=== PATIENT | female | born 1975 | race Caucasian/White ===

== ENCOUNTER 2020-10-06 13:35 | Emergency (ER) | payer MEDICAID ==
[~2020-10-06] VITALS: Ht 160 cm; Wt 78.6 kg
[2020-10-06 14:18] LABS: CLARITY,URINE CLEAR (Clear); COLOR,URINE YELLOW (Yellow); GLUCOSE, URINE NEGATIVE (Neg); KETONES,URINE NEGATIVE (Neg); LEUKOCYTE ESTERASE ,URINE NEGATIVE (Neg); NITRITES, URINE NEGATIVE (Neg); OCCULT BLOOD,URINE NEGATIVE (Neg); PROTEIN,URINE NEGATIVE (Neg); UROBILINOGEN,URINE 0.2 E.U/dL (0.2-1.0)
[2020-10-06 14:19] LABS: UA COLLECTION TYPE CLN CATCH MIDSTREAM
[2020-10-06 14:23] LABS: BASOPHILS # (AUTO) 0.1 X10'3 (0-0.2); BASOPHILS % (AUTO) 0.7 % (0-1); EOSINOPHILS # (AUTO) 0.4 X10'3 (0-0.9); HEMATOCRIT 41.7 % (35.0-45.0); HEMOGLOBIN 14.3 g/dl (12.0-16.0); LYMPHOCYTES # (AUTO) 1.8 X10'3 (1.1-4.8); LYMPHOCYTES % (AUTO) 23.9 % (21-51); MEAN CORPUSCULAR HEMOGLOBIN 34.6 PG (27.0-31.0); MEAN CORPUSCULAR HGB CONC 34.3 g/dL (33.0-36.5); MEAN CORPUSCULAR VOLUME 100.9 FL (78-98); MONOCYTES # (AUTO) 0.6 X10'3 (0-0.9); MONOCYTES % (AUTO) 7.2 % (2-12); NEUTROPHILS # (AUTO) 4.9 X10'3 (1.8-7.7); NEUTROPHILS % (AUTO) 63.2 % (42-75); PLATELET COUNT 298 X10'3 (140-440); RED BLOOD COUNT 4.14 X10'6 (4.20-5.60); RED CELL DISTRIBUTION WIDTH 13.4 % (11.5-14.5); WHITE BLOOD COUNT 7.7 X10'3 (4.5-11.0)
[2020-10-06 14:30] LABS: ALANINE AMINOTRANSFERASE 18 U/L (12-78); ALBUMIN 3.7 G/DL (3.4-5.0); ALBUMIN/GLOBULIN RATIO 1.1 (1.1-1.5); ALKALINE PHOSPHATASE 90 IU/L (46-116); AMYLASE 51 U/L (25-115); ANION GAP 8 (8-16); ASPARTATE AMINO TRANSFERASE 17 U/L (10-37); BILIRUBIN,TOTAL 0.4 MG/DL (0.1-1.0); BLOOD UREA NITROGEN 11 MG/DL (7-18); BUN/CREATININE RATIO 18.3 (6.6-38.0); CALCIUM 8.8 MG/DL (8.5-10.1); CHLORIDE 102 MMOL/L (99-107); GLUCOSE 104 MG/DL (70-104); LIPASE 73 U/L (73-393); SODIUM 140 MMOL/L (135-145); TOTAL CARBON DIOXIDE 30.5 MMOL/L (24-32); TOTAL PROTEIN 7.2 G/DL (6.4-8.2); eGFR > 90 ML/MIN
[2020-10-06] MEDS ORDERED: ESCI20TA39 PO (16:03)
[2020-10-06 16:33] VITALS: BP 150/87
== END 2020-10-06 16:35 | disposition home or self-care (01) ==
LOC: ER 13:35
DX: F41.9 Anxiety disorder, unspecified (principal); R10.13 Epigastric pain; K74.60 Unspecified cirrhosis of liver
CPT/HCPCS: 36415; 80053; 81003; 82150; 83690; 85025; 99284

== ENCOUNTER 2021-03-06 13:33 | Emergency (ER) | payer MEDICAID ==
[~2021-03-06] VITALS: Ht 160 cm; Wt 86.0 kg
[~2021-03-06 13:33] MED LIST: ESCI20TA39 PO
[2021-03-06 14:20] LABS: BASOPHILS % (AUTO) 0.5 % (0-1); EOSINOPHILS # (AUTO) 0.2 X10'3 (0-0.9); EOSINOPHILS % (AUTO) 3.5 % (0-6); HEMATOCRIT 40.3 % (35.0-45.0); HEMOGLOBIN 13.9 g/dl (12.0-16.0); LYMPHOCYTES # (AUTO) 1.5 X10'3 (1.1-4.8); LYMPHOCYTES % (AUTO) 23.3 % (21-51); MEAN CORPUSCULAR HEMOGLOBIN 33.6 PG (27.0-31.0); MEAN CORPUSCULAR HGB CONC 34.6 g/dL (33.0-36.5); MEAN CORPUSCULAR VOLUME 97.1 FL (78-98); MEAN PLATELET VOLUME 8.2 FL (7.4-10.4); MONOCYTES # (AUTO) 0.5 X10'3 (0-0.9); MONOCYTES % (AUTO) 7.1 % (2-12); NEUTROPHILS # (AUTO) 4.3 X10'3 (1.8-7.7); NEUTROPHILS % (AUTO) 65.6 % (42-75); PLATELET COUNT 344 X10'3 (140-440); RED BLOOD COUNT 4.15 X10'6 (4.20-5.60); RED CELL DISTRIBUTION WIDTH 12.8 % (11.5-14.5); WHITE BLOOD COUNT 6.5 X10'3 (4.5-11.0)
[2021-03-06 14:40] LABS: ALANINE AMINOTRANSFERASE 25 U/L (12-78); ALBUMIN 3.6 G/DL (3.4-5.0); ALKALINE PHOSPHATASE 81 IU/L (46-116); ANION GAP 7 (8-16); ASPARTATE AMINO TRANSFERASE 20 U/L (10-37); BILIRUBIN,TOTAL 0.4 MG/DL (0.1-1.0); BLOOD UREA NITROGEN 12 MG/DL (7-18); BUN/CREATININE RATIO 20.7 (6.6-38.0); CALCIUM 8.8 MG/DL (8.5-10.1); CHLORIDE 103 MMOL/L (99-107); CREATININE 0.58 MG/DL (0.40-0.90); GLUCOSE 107 MG/DL (70-104); POTASSIUM 3.5 MMOL/L (3.5-5.1); SODIUM 138 MMOL/L (135-145); TOTAL CARBON DIOXIDE 28.1 MMOL/L (24-32); TOTAL PROTEIN 7.2 G/DL (6.4-8.2); eGFR > 90 ML/MIN
[2021-03-06 16:43] VITALS: BP 180/112
[2021-03-06 17:21] LABS: URINE HCG NEGATIVE (NEG)
[2021-03-06 17:23] LABS: CLARITY,URINE CLEAR (Clear); GLUCOSE, URINE NEGATIVE (Neg); KETONES,URINE NEGATIVE (Neg); LEUKOCYTE ESTERASE ,URINE NEGATIVE (Neg); NITRITES, URINE NEGATIVE (Neg); OCCULT BLOOD,URINE NEGATIVE (Neg); PROTEIN,URINE NEGATIVE (Neg); UROBILINOGEN,URINE 0.2 E.U/dL (0.2-1.0)
[2021-03-06 17:24] LABS: COLOR,URINE STRAW (Yellow); UA COLLECTION TYPE NON-SPECIFIED
[2021-03-06 17:33] LABS: URINE AMPHETAMINE SCREEN POSITIVE (Neg); URINE BARBITUATE SCREEN NEGATIVE (Neg); URINE BENZODIAZEPINES SCREEN NEGATIVE (Neg); URINE CANNABINOID SCREEN NEGATIVE (Neg); URINE COCAINE SCREEN NEGATIVE (Neg); URINE METHADONE SCREEN NEGATIVE (Neg); URINE OPIATE SCREEN NEGATIVE (Neg); URINE PHENCYCLIDINE SCREEN NEGATIVE (Neg)
--- NOTE | 2021-03-06 18:55 | NUR ---
PT NOT IN ROOM
--- NOTE | 2021-03-06 19:10 | NUR ---
SPOKE WITH PROVIDER, SHE SAID PT LEFT BEFORE DC, ELOPED.
== END 2021-03-06 19:10 | disposition left against medical advice (07) ==
LOC: ER 13:33
DX: I10 Essential (primary) hypertension (principal); Z20.822 Contact with and (suspected) exposure to COVID-19; F15.90 Other stimulant use, unspecified, uncomplicated; H53.8 Other visual disturbances; R53.1 Weakness; R42 Dizziness and giddiness; R51.9 Headache, unspecified; Z98.51 Tubal ligation status; Z72.89 Other problems related to lifestyle; Z79.899 Other long term (current) drug therapy
CPT/HCPCS: 36415; 71045; 80053; 80305; 81003; 81025; 83880; 84443; 84484; 85025; 87635; 93005; 99285; C9803

== ENCOUNTER 2021-08-25 19:49 | Inpatient (IN) | payer MEDICAID, OTHER ==
[~2021-08-25] VITALS: Ht 157.5 cm; Wt 82.4 kg
[2021-08-25] MEDS ORDERED: naloxone 2mg/2ml inj NAS STA (20:00)
--- NOTE | 2021-08-25 20:00 | NUR ---
2 MG NARCAN GIVEN INTRANASAL IV PLACEMENT IS ATTEMPTED.
--- NOTE | 2021-08-25 20:00 | NUR ---
RT PAGED. RT IN ROOM.
--- NOTE | 2021-08-25 20:01 | NUR ---
ANOTHER 2 MG NARCAN GIVEN IV
[2021-08-25] MEDS ORDERED: naloxone 2mg/2ml inj IV STA (20:02)
--- NOTE | 2021-08-25 20:02 | NUR ---
20 ETOM[address]ATE, [address] BAUTISTA ATTEMPTING INTUBATION WITH GLEIDOSCOPE
[2021-08-25] MEDS ORDERED: propofol 1000mg/100ml bottle 100 ML IV ONE (20:18)
[2021-08-25] MEDS ORDERED: propofol 1000mg/100ml bottle 100 ML IV PRN (20:20)
[2021-08-25 20:21] LABS: BASOPHILS % (AUTO) 0.5 % (0-1); EOSINOPHILS # (AUTO) 0.2 X10'3 (0-0.9); EOSINOPHILS % (AUTO) 2.3 % (0-6); HEMATOCRIT 40.3 % (35.0-45.0); HEMOGLOBIN 13.6 g/dl (12.0-16.0); LYMPHOCYTES # (AUTO) 1.4 X10'3 (1.1-4.8); MEAN CORPUSCULAR HEMOGLOBIN 32.4 PG (27.0-31.0); MEAN CORPUSCULAR HGB CONC 33.9 g/dL (33.0-36.5); MEAN CORPUSCULAR VOLUME 95.6 FL (78-98); MEAN PLATELET VOLUME 8.5 FL (7.4-10.4); MONOCYTES # (AUTO) 0.5 X10'3 (0-0.9); MONOCYTES % (AUTO) 7.4 % (2-12); NEUTROPHILS # (AUTO) 5.1 X10'3 (1.8-7.7); NEUTROPHILS % (AUTO) 70.8 % (42-75); PLATELET COUNT 366 X10'3 (140-440); RED BLOOD COUNT 4.21 X10'6 (4.20-5.60); RED CELL DISTRIBUTION WIDTH 13.1 % (11.5-14.5); WHITE BLOOD COUNT 7.3 X10'3 (4.5-11.0)
[2021-08-25] MEDS ORDERED: succinylcholine 20mg/ml inj IV STA (20:26)
[2021-08-25 20:28] LABS: URINE HCG NEGATIVE (NEG)
[2021-08-25] MEDS ORDERED: etomidate 2mg/ml inj. IV ONE (20:30)
[2021-08-25] MEDS ORDERED: normal saline 1000ML IV soln IVB ONE (20:30)
[2021-08-25 20:32] LABS: URINE AMPHETAMINE SCREEN POSITIVE (Neg); URINE BARBITUATE SCREEN NEGATIVE (Neg); URINE BENZODIAZEPINES SCREEN NEGATIVE (Neg); URINE CANNABINOID SCREEN NEGATIVE (Neg); URINE COCAINE SCREEN NEGATIVE (Neg); URINE METHADONE SCREEN NEGATIVE (Neg); URINE OPIATE SCREEN NEGATIVE (Neg); URINE PHENCYCLIDINE SCREEN NEGATIVE (Neg)
[2021-08-25 20:35] LABS: CLARITY,URINE SLIGHTLY CLOUDY (Clear); COLOR,URINE YELLOW (Yellow); GLUCOSE, URINE NEGATIVE (Neg); KETONES,URINE TRACE mg/dl (Neg); LEUKOCYTE ESTERASE ,URINE SMALL (Neg); NITRITES, URINE NEGATIVE (Neg); OCCULT BLOOD,URINE NEGATIVE (Neg); PH,URINE 5.5 (4.8-8.0); PROTEIN,URINE NEGATIVE (Neg); UROBILINOGEN,URINE 0.2 E.U/dL (0.2-1.0)
[2021-08-25 20:40] LABS: UA COLLECTION TYPE NON-SPECIFIED
[2021-08-25 20:45] LABS: BACTERIA,URINE 1+ /HPF (Neg); SQUAMOUS EPITHELIAL CELL,UR MANY /LPF (FEW)
[2021-08-25 20:52] LABS: ALANINE AMINOTRANSFERASE 22 U/L (12-78); ALBUMIN 3.7 G/DL (3.4-5.0); ALKALINE PHOSPHATASE 92 IU/L (46-116); ANION GAP 13 (8-16); ASPARTATE AMINO TRANSFERASE 25 U/L (10-37); BILIRUBIN,TOTAL 0.3 MG/DL (0.1-1.0); BLOOD UREA NITROGEN 10 MG/DL (7-18); BUN/CREATININE RATIO 13.9 (6.6-38.0); CALCIUM 8.8 MG/DL (8.5-10.1); CHLORIDE 104 MMOL/L (99-107); CREATININE 0.72 MG/DL (0.40-0.90); ETHANOL < 0.010 GM/DL (0.0-0.010); GLUCOSE 102 MG/DL (70-104); POTASSIUM 3.1 MMOL/L (3.5-5.1); SODIUM 141 MMOL/L (135-145); TOTAL CARBON DIOXIDE 24.3 MMOL/L (24-32); TOTAL PROTEIN 7.4 G/DL (6.4-8.2); eGFR 87 ML/MIN
[2021-08-25 21:07] LABS: APTT 22 SECONDS (22-32)
[2021-08-25] MEDS: propofol 1000mg/100ml bottle 100 ML IV SCH (21:13)
[2021-08-25 21:24] LABS: ABG BASE EXCESS -3.7 mmol/L (-2.0-2.0); ABG OXYGEN SATURATION 98.3 % (94-97); ABG PCO2 (T) 34.9 mmHg (32.0-45.0); ABG PO2 (T) 128.8 mmHg (75.0-100.0); ALLEN'S TEST POSITIVE; FCOHb 0.6 % (0.0-3.9); FMetHb 0.3 % (0.0-1.5); FO2Hb 97.4 % (94-97); PATIENT TEMPERATURE 35.7; PEEP 5 cm H2O; RESPIRATORY RATE 16 b/min; TIDAL VOLUME 400 mL; TOTAL HEMOGLOBIN 13.8 G/dl (12.0-16.0)
[2021-08-25 21:41] LABS: ACETAMINOPHEN < 2.0 UG/ML (10-30)
[2021-08-25] MEDS ORDERED: potassium Cl 40 mEq/0.45% sodium chloride IV soln 520ml IV ONE (22:15)
--- NOTE | 2021-08-25 22:32 | NUR ---
Patient's family contact number Sang: [phone]
[2021-08-25 22:43] LABS: TRIGLYCERIDES 110 MG/DL (20-135)
--- NOTE | 2021-08-25 23:13 | NUR ---
LP attempted at bedside by provider. Unsuccesful.
[2021-08-25 23:58] VITALS: BP 147/85
[2021-08-25 23:59] VITALS: BP 148/85
[2021-08-26] VITALS (33 sets, daily range): BP systolic 86–179; BP diastolic 46–102
[2021-08-26] MEDS: cefepime 1GM/NS ADD-VANTAGE 100 ML IV SCH ×4 (00:27→23:52)
[2021-08-26] MEDS: propofol 1000mg/100ml bottle 100 ML IV SCH ×6 (01:40→21:20)
[2021-08-26] MEDS: potassium CL 10mEq/100ml bag 100 ML IV PRN ×13 (02:44→22:45)
[2021-08-26 03:46] LABS: ABG BASE EXCESS -1.7 mmol/L (-2.0-2.0); ABG HCO3 22.5 mmol/L (22.0-26.0); ABG OXYGEN SATURATION 98.2 % (94-97); ABG PO2 (T) 111.8 mmHg (75.0-100.0); ALLEN'S TEST POSITIVE; FMetHb 0.2 % (0.0-1.5); PATIENT TEMPERATURE 36.6; PEEP 5 cm H2O; RESPIRATORY RATE 16 b/min; TIDAL VOLUME 400 mL; TOTAL HEMOGLOBIN 14.6 G/dl (12.0-16.0)
[2021-08-26 04:41] LABS: TRIGLYCERIDES 145 MG/DL (20-135)
[2021-08-26 05:47] LABS: ALANINE AMINOTRANSFERASE 21 U/L (12-78); ALBUMIN 3.8 G/DL (3.4-5.0); ALBUMIN/GLOBULIN RATIO 1.1 (1.1-1.5); ALKALINE PHOSPHATASE 94 IU/L (46-116); ANION GAP 12 (8-16); ASPARTATE AMINO TRANSFERASE 26 U/L (10-37); BILIRUBIN,TOTAL 0.5 MG/DL (0.1-1.0); BLOOD UREA NITROGEN 8 MG/DL (7-18); CALCIUM 8.8 MG/DL (8.5-10.1); CHLORIDE 106 MMOL/L (99-107); CREATININE 0.57 MG/DL (0.40-0.90); GLUCOSE 106 MG/DL (70-104); POTASSIUM 3.1 MMOL/L (3.5-5.1); SODIUM 142 MMOL/L (135-145); TOTAL CARBON DIOXIDE 23.9 MMOL/L (24-32); TOTAL PROTEIN 7.3 G/DL (6.4-8.2); eGFR > 90 ML/MIN
[2021-08-26] MEDS ORDERED: 0.9 % SODIUM CHLORIDE 10 ML VIAL ONE (06:21)
[2021-08-26] MEDS ORDERED: etomidate 2mg/ml inj. ONE (06:21)
--- NOTE | 2021-08-26 06:32 | NUR ---
Pt. sitting up in bed kicking legs writhing around. Propofol increased. Pt. had to bed held down by 4 staff members.
[2021-08-26 06:33] LABS: BASOPHILS # (AUTO) 0.1 X10'3 (0-0.2); BASOPHILS % (AUTO) 0.3 % (0-1); EOSINOPHILS # (AUTO) 0.1 X10'3 (0-0.9); EOSINOPHILS % (AUTO) 0.5 % (0-6); HEMATOCRIT 41.6 % (35.0-45.0); HEMOGLOBIN 14.5 g/dl (12.0-16.0); LYMPHOCYTES # (AUTO) 0.9 X10'3 (1.1-4.8); LYMPHOCYTES % (AUTO) 4.9 % (21-51); MEAN CORPUSCULAR HEMOGLOBIN 33.4 PG (27.0-31.0); MEAN CORPUSCULAR HGB CONC 34.9 g/dL (33.0-36.5); MEAN CORPUSCULAR VOLUME 95.5 FL (78-98); MEAN PLATELET VOLUME 9.2 FL (7.4-10.4); MONOCYTES # (AUTO) 1.5 X10'3 (0-0.9); MONOCYTES % (AUTO) 7.8 % (2-12); NEUTROPHILS # (AUTO) 16.5 X10'3 (1.8-7.7); NEUTROPHILS % (AUTO) 86.5 % (42-75); PLATELET COUNT 357 X10'3 (140-440); RED BLOOD COUNT 4.36 X10'6 (4.20-5.60); RED CELL DISTRIBUTION WIDTH 12.9 % (11.5-14.5)
[2021-08-26] MEDS ORDERED: midazolam 1 mg/ML 2ml injection IV ONE (07:00)
[2021-08-26] MEDS ORDERED: MIDAZolam 5mg/ml 2ml vial ONE (07:00)
[2021-08-26 07:27] LABS: ALANINE AMINOTRANSFERASE 20 U/L (12-78); ALBUMIN 3.6 G/DL (3.4-5.0); ALKALINE PHOSPHATASE 93 IU/L (46-116); ANION GAP 11 (8-16); ASPARTATE AMINO TRANSFERASE 28 U/L (10-37); BILIRUBIN,TOTAL 0.5 MG/DL (0.1-1.0); BLOOD UREA NITROGEN 7 MG/DL (7-18); BUN/CREATININE RATIO 12.5 (6.6-38.0); CALCIUM 8.6 MG/DL (8.5-10.1); CHLORIDE 106 MMOL/L (99-107); CREATININE 0.56 MG/DL (0.40-0.90); GLUCOSE 105 MG/DL (70-104); POTASSIUM 3.3 MMOL/L (3.5-5.1); SODIUM 142 MMOL/L (135-145); TOTAL CARBON DIOXIDE 25.3 MMOL/L (24-32); TOTAL PROTEIN 7.1 G/DL (6.4-8.2); eGFR > 90 ML/MIN
[2021-08-26] MEDS ORDERED: normal saline 1000ml 1,000 ML IV ONE (08:15)
--- NOTE | 2021-08-26 09:02 | NUR ---
RN notified Dr. Myles earlier about low urine output and combativeness. Precedex ordered, NS 1L bolus ordered. Midline ordered. 2 PIVS inserted instead.
[2021-08-26] MEDS: pantoprazole 40MG/NS 100ML BAG 100 ML IV SCH (09:18)
[2021-08-26] MEDS: dexmedetomidin/NS 400mcg/100ml 100 ML IV SCH ×3 (09:46→18:57)
--- NOTE | 2021-08-26 10:58 | NUR ---
Initial: Pt admit for AMS, intubated for airway protection per EMR. Currently NPO with an OGT in place, to begin TF if unable to extubate pt per MD at critical care rounds. Propofol visualized at bedside to be running at 19.2 mL/hr providing 506 kcal/day, though per RN Propofol rate being weaned at this time. See TF recommendations below for if pt to receive nutrition support. Recommendations have been adjusted for current Propofol rate with additional recommendations for if Propofol is discontinued. [facility] 08/26. Will continue to follow closely. Recommendations: 1) IF TF with Propofol at 19.2 mL/hr (506 kcal/day), continuous Vital HP with 40 mL/hr goal. Begin at 20 mL and advance by 20 mL Q8H as tolerated to goal rate. Will meet 100% estimated energy needs with kcal from Propofol though only 84% estimated protein needs 2) IF TF and no Propofol, continuous Vital HP with 60 mL/hr goal rate 3) Monitor Propofol rate and adjust recommendations as appropriate 4) IF TF, additional 100 mL water flush Q4H; monitor serum Na 5) IF TF, prealbumin q Wednesday/; daily scaled weights 6) Advance to regular diet as medically indicated following extubation 7) Routine bowel care Addendum: 08/26/21 at [address] Amended: Links added.
[2021-08-26] MEDS ORDERED: VANCOmycin 2,000MG in NS 500ml IV soln IV ONE (12:00)
--- NOTE | 2021-08-26 12:00 | NUR ---
S.O. and young boy at bedside.
--- NOTE | 2021-08-26 13:23 | NUR ---
Pt. still attempts to sit upright abruptly and does not follow commands. RN has been attempting to wean off Propofol and increase Precedex so pt. can wake up in the hopes that pt. can follow commands appropriately.
--- NOTE | 2021-08-26 13:37 | NUR ---
TF consult: Pt remains intubated. Per RN Propofol was increased to 50 mcg/kg/min (24 mL/hr) which provides 633 kcal/day. TF recommendations have been adjusted accordingly. Will continue to follow closely. Recommendations: 1) Given Propofol at 24 mL/hr (633 kcal/day), continuous Vital HP with 36 mL/hr goal to provide 864 mL total volume/day, 864 kcal, 75 g protein, and 722 mL water. Will meet 100% estimated energy needs with kcal from Propofol though only 75% estimated protein needs 2) IF Propofol discontinued, continuous Vital HP with 60 mL/hr goal rate 3) Monitor Propofol rate and adjust recommendations as appropriate 4) Additional 150 mL water flush Q4H; monitor serum Na 5) Prealbumin q Wednesday/ 6) Daily scaled weights 7) Advance to regular diet as medically indicated following extubation 8) Routine bowel care Addendum: 08/26/21 at [address] Amended: Links added.
--- NOTE | 2021-08-26 14:22 | NUR ---
Sister and son at bedside. Sister wanted sedation off to wake pt. up and hear her voice. Pt. sat up, writhing in bed, not following commands. Sedation vacation ended. Son distraught and stated to turn sedation back on. RN is needing to educate multiple family members frequently on plan of care and pt. safety measures.
--- NOTE | 2021-08-26 18:16 | NUR ---
Dr. Myles told RN that family told him they found a suicide note and pt. intended to harm herself. appliance repair technician and NOC RN notified.
--- NOTE | 2021-08-26 18:20 | NUR ---
Problems reprioritized. Patient report given, questions answered & plan of care reviewed with Blanca CHISHOLM.
[2021-08-26] MEDS: heparin, porcine 5000 units/ml vial SQ SCH (19:13)
[2021-08-27] VITALS (28 sets, daily range): BP systolic 89–150; BP diastolic 49–82
[2021-08-27] MEDS: vancomycin/NS 1 GM ADD-VANTAGE 250 ML IV SCH ×2 (00:27→13:45)
[2021-08-27] MEDS: potassium CL 10mEq/100ml bag 100 ML IV PRN ×2 (01:24→05:56)
[2021-08-27] MEDS: propofol 1000mg/100ml bottle 100 ML IV SCH ×3 (01:28→10:16)
[2021-08-27 04:05] LABS: ABG BASE EXCESS -7.6 mmol/L (-2.0-2.0); ABG HCO3 15.9 mmol/L (22.0-26.0); ABG PCO2 (T) 26.4 mmHg (32.0-45.0); ABG PO2 (T) 88.2 mmHg (75.0-100.0); ALLEN'S TEST POSITIVE; FCOHb 0.3 % (0.0-3.9); FMetHb 0.2 % (0.0-1.5); FO2Hb 96.5 % (94-97); PATIENT TEMPERATURE 36.5; PEEP 5 cm H2O; RESPIRATORY RATE 16 b/min; TIDAL VOLUME 400 mL; TOTAL HEMOGLOBIN 12.2 G/dl (12.0-16.0)
[2021-08-27 04:53] LABS: BASOPHILS % (AUTO) 0.3 % (0-1); EOSINOPHILS # (AUTO) 0.3 X10'3 (0-0.9); EOSINOPHILS % (AUTO) 3.4 % (0-6); HEMOGLOBIN 11.8 g/dl (12.0-16.0); LYMPHOCYTES # (AUTO) 1.1 X10'3 (1.1-4.8); LYMPHOCYTES % (AUTO) 13.9 % (21-51); MEAN CORPUSCULAR HEMOGLOBIN 33.3 PG (27.0-31.0); MEAN CORPUSCULAR HGB CONC 34.7 g/dL (33.0-36.5); MEAN PLATELET VOLUME 8.5 FL (7.4-10.4); MONOCYTES # (AUTO) 0.5 X10'3 (0-0.9); MONOCYTES % (AUTO) 5.8 % (2-12); NEUTROPHILS # (AUTO) 6.1 X10'3 (1.8-7.7); NEUTROPHILS % (AUTO) 76.6 % (42-75); PLATELET COUNT 265 X10'3 (140-440); RED BLOOD COUNT 3.54 X10'6 (4.20-5.60); WHITE BLOOD COUNT 7.9 X10'3 (4.5-11.0)
[2021-08-27 05:09] LABS: ALANINE AMINOTRANSFERASE 17 U/L (12-78); ALBUMIN 2.6 G/DL (3.4-5.0); ALBUMIN/GLOBULIN RATIO 0.9 (1.1-1.5); ALKALINE PHOSPHATASE 75 IU/L (46-116); ANION GAP 7 (8-16); ASPARTATE AMINO TRANSFERASE 23 U/L (10-37); BILIRUBIN,TOTAL 0.3 MG/DL (0.1-1.0); BLOOD UREA NITROGEN 6 MG/DL (7-18); BUN/CREATININE RATIO 10.7 (6.6-38.0); CALCIUM 8.3 MG/DL (8.5-10.1); CHLORIDE 113 MMOL/L (99-107); CREATININE 0.56 MG/DL (0.40-0.90); GLUCOSE 122 MG/DL (70-104); POTASSIUM 3.7 MMOL/L (3.5-5.1); SODIUM 141 MMOL/L (135-145); TOTAL CARBON DIOXIDE 20.9 MMOL/L (24-32); TOTAL PROTEIN 5.5 G/DL (6.4-8.2); eGFR > 90 ML/MIN
[2021-08-27 07:09] LABS: MAGNESIUM 1.7 MG/DL (1.5-2.4); PHOSPHORUS 2.8 MG/DL (2.3-4.5)
[2021-08-27] MEDS ORDERED: magnesium 2GM in 50ml NS 50 ML IV PRN (07:35)
[2021-08-27] MEDS ORDERED: magnesium 4gm in 100ml NS 100 ML IV PRN (07:35)
[2021-08-27] MEDS ORDERED: potassium CL 10mEq/100ml bag 100 ML IV PRN (07:35)
[2021-08-27] MEDS ORDERED: quetiapine 100mg tablet PO ONE (07:35)
[2021-08-27] MEDS: pantoprazole 40MG/NS 100ML BAG 100 ML IV SCH (07:56)
[2021-08-27] MEDS: cefepime 1GM/NS ADD-VANTAGE 100 ML IV SCH ×2 (07:56→18:30)
[2021-08-27] MEDS: heparin, porcine 5000 units/ml vial SQ SCH ×2 (07:57→20:43)
[2021-08-27] MEDS: haloperidol lactate 5mg/ml inj IM SCH ×3 (09:14→16:00)
--- NOTE | 2021-08-27 11:25 | NUR ---
Patient was extubated at 1110 with RT and RN bedside. Patient tolerated well and placed on 2L NC. Patient is feeling "major anxiety" so Precedex was restarted to try and help relax the patient.
--- NOTE | 2021-08-27 18:45 | NUR ---
I have received report and assumed care of pt, pt resting in bed, rise and fall of chest cavity equile and symmetrical, Pt denies feelings of suicidal ideation, of note her affect is quite labile, from manic to hostile in a very short time. Bedside angle bender in place for safety until cleared by mental health.
--- NOTE | 2021-08-27 19:20 | NUR ---
Report given to rec rn plan of care reviewed
[2021-08-27] MEDS: QUEtiapine 25mg tablet PO SCH (20:44)
[2021-08-27] MEDS: dexmedetomidin/NS 400mcg/100ml 100 ML IV SCH (22:44)
[2021-08-27] MEDS ORDERED: VANCOMYCIN LEVEL IV ONE (23:30)
[2021-08-28] VITALS (25 sets, daily range): BP systolic 104–146; BP diastolic 60–76
[2021-08-28] MEDS: cefepime 1GM/NS ADD-VANTAGE 100 ML IV SCH ×4 (00:24→23:55)
[2021-08-28] MEDS: vancomycin/NS 1 GM ADD-VANTAGE 250 ML IV SCH (01:14)
[2021-08-28 05:18] LABS: BASOPHILS # (AUTO) 0.1 X10'3 (0-0.2); BASOPHILS % (AUTO) 0.6 % (0-1); EOSINOPHILS # (AUTO) 0.2 X10'3 (0-0.9); EOSINOPHILS % (AUTO) 2.1 % (0-6); HEMATOCRIT 34.2 % (35.0-45.0); HEMOGLOBIN 11.9 g/dl (12.0-16.0); LYMPHOCYTES # (AUTO) 1.3 X10'3 (1.1-4.8); LYMPHOCYTES % (AUTO) 14.3 % (21-51); MEAN CORPUSCULAR HEMOGLOBIN 33.4 PG (27.0-31.0); MEAN CORPUSCULAR HGB CONC 34.9 g/dL (33.0-36.5); MEAN CORPUSCULAR VOLUME 95.6 FL (78-98); MEAN PLATELET VOLUME 9.3 FL (7.4-10.4); MONOCYTES # (AUTO) 0.6 X10'3 (0-0.9); NEUTROPHILS # (AUTO) 6.8 X10'3 (1.8-7.7); PLATELET COUNT 269 X10'3 (140-440); RED BLOOD COUNT 3.58 X10'6 (4.20-5.60)
[2021-08-28 05:31] LABS: ALANINE AMINOTRANSFERASE 27 U/L (12-78); ALBUMIN 2.6 G/DL (3.4-5.0); ALBUMIN/GLOBULIN RATIO 0.8 (1.1-1.5); ALKALINE PHOSPHATASE 79 IU/L (46-116); ANION GAP 12 (8-16); ASPARTATE AMINO TRANSFERASE 48 U/L (10-37); BILIRUBIN,TOTAL 0.5 MG/DL (0.1-1.0); BLOOD UREA NITROGEN 4 MG/DL (7-18); BUN/CREATININE RATIO 8.7 (6.6-38.0); CALCIUM 8.1 MG/DL (8.5-10.1); CHLORIDE 108 MMOL/L (99-107); CREATININE 0.46 MG/DL (0.40-0.90); GLUCOSE 93 MG/DL (70-104); POTASSIUM 3.5 MMOL/L (3.5-5.1); SODIUM 143 MMOL/L (135-145); TOTAL CARBON DIOXIDE 22.6 MMOL/L (24-32); TOTAL PROTEIN 5.9 G/DL (6.4-8.2); eGFR > 90 ML/MIN
[2021-08-28 05:32] LABS: PREALBUMIN 13.1 MG/DL (19-36)
[2021-08-28] MEDS: QUEtiapine 25mg tablet PO SCH ×2 (09:01→20:00)
[2021-08-28] MEDS: heparin, porcine 5000 units/ml vial SQ SCH ×2 (09:02→20:00)
[2021-08-28] MEDS: pantoprazole 40MG/NS 100ML BAG 100 ML IV SCH (09:16)
--- NOTE | 2021-08-28 10:57 | NUR ---
Met with patient in regards to substance use and to see if patient wanted any resources for treatment options. Patient doesn't feel like she needs any resources at this time and feels like she can quit using on her own. I gave her a list of options in case she changes her mind and left her my card to call me if she has any questions.
[2021-08-28] MEDS: VANCOMYCIN 1,500MG in D5W 500ML IVPB IV SCH (13:00)
[2021-08-28] MEDS: acetaminophen 325mg tablet PO PRN (20:01)
[2021-08-29] MEDS: VANCOMYCIN 1,500MG in D5W 500ML IVPB IV SCH (02:05)
[2021-08-29] MEDS ORDERED: VANCOMYCIN 1,500MG inj. 1,500 MG in normal saline 250ml IV soln 300 ML IV SCH (02:37)
[2021-08-29] MEDS: VANCOMYCIN 1,500MG inj. 1,500 MG in normal saline 250ml IV soln 300 ML IV SCH ×2 (03:45→16:43)
[2021-08-29 06:00] VITALS: BP 164/83
--- NOTE | 2021-08-29 07:03 | NUR ---
Patient in room [facility]TH[facility] 4010. I have received report from KATHRINE Christina and had the opportunity to ask questions and assume patient care.
[2021-08-29] MEDS: pantoprazole 40MG/NS 100ML BAG 100 ML IV SCH (07:24)
[2021-08-29] MEDS: heparin, porcine 5000 units/ml vial SQ SCH ×2 (07:25→19:46)
[2021-08-29] MEDS: QUEtiapine 25mg tablet PO SCH ×2 (07:25→19:46)
[2021-08-29] MEDS: acetaminophen 325mg tablet PO PRN ×2 (07:38→19:45)
[2021-08-29] MEDS: cefepime 1GM/NS ADD-VANTAGE 100 ML IV SCH ×2 (08:17→16:03)
[2021-08-29 10:00] VITALS: BP 158/73
[2021-08-29] MEDS ORDERED: ibuprofen 200mg tablet PO PRN (11:55)
[2021-08-29] MEDS: ibuprofen 200mg tablet PO PRN (14:48)
--- NOTE | 2021-08-29 15:15 | NUR ---
The medications due at 1530 and 1600 are not available on the floor. Called pharmacy and they said they will bring them up shortly.
--- NOTE | 2021-08-29 15:40 | NUR ---
F/u 08/29: Pt extubated 08/27 advanced to EC7/thin diet yesterday per AUDIO VISUAL TECH recs though no PO documentation currently w/ sitter given pt admitted to suicide attempt per EMR. MARGUERITE d/w RN who reports pt not drinking much fluids or eating anything besides yogurt/applesauce. Pt seen by MARGUERITE at bedside; pt reports low appetite declines ONS and reports no food preferences outside liking yogurt from nourishment room. Pt is agreeable to magic cup TIDWM; dietary notified. No documented BM this admit 4 days; would benefit from routine bowel care per physician discretion. Will monitor for PO acceptance and further nutrition intervention needs this admit. Recommendations: 1) Continue regular/EC7 thin liquids diet per AUDIO VISUAL TECH/MD recs; encourage PO 2) magic cup TIDWM for additional kcals/protein; encourage PO 3) Routine bowel care 4) weekly wts Addendum: 08/29/21 at [address] Amended: Links added.
[2021-08-29 17:00] VITALS: BP 150/60
--- NOTE | 2021-08-29 18:37 | NUR ---
Patient in room [facility]TH[facility] 4010. I have received report from KATHRINE EDWARDS and had the opportunity to ask questions and assume patient care. Addendum: 08/29/21 at 1837 by Lety Talbot RN Amended: Links added.
--- NOTE | 2021-08-29 18:39 | NUR ---
Problems reprioritized. Patient report given, questions answered & plan of care reviewed with KATHRINE Davidson.
--- NOTE | 2021-08-29 20:15 | NUR ---
PT WITH FLAT AFFECT AND TOOK HS MEDICATIONS. MEDICATED WITH TYLENOL FOR COMPLAINT OF HEADACHE.
[2021-08-29 22:00] VITALS: BP 155/79
[2021-08-30] MEDS: cefepime 1GM/NS ADD-VANTAGE 100 ML IV SCH ×3 (00:15→15:42)
[2021-08-30] MEDS: VANCOMYCIN 1,500MG inj. 1,500 MG in normal saline 250ml IV soln 300 ML IV SCH ×2 (04:10→16:37)
--- NOTE | 2021-08-30 06:28 | NUR ---
Problems reprioritized. Patient report given, questions answered & plan of care reviewed with KATHRINE EDWARDS. Addendum: 08/30/21 at 0628 by Lety Talbot RN Amended: Links added.
--- NOTE | 2021-08-30 06:32 | NUR ---
Patient in room ORTH[facility] 4010. I have received report from KATHRINE Davidson and had the opportunity to ask questions and assume patient care.
[2021-08-30] MEDS: pantoprazole 40mg Tablet.DR PO SCH (09:49)
[2021-08-30] MEDS: QUEtiapine 25mg tablet PO SCH ×2 (09:49→20:17)
[2021-08-30] MEDS: ibuprofen 200mg tablet PO PRN (09:50)
[2021-08-30] MEDS: heparin, porcine 5000 units/ml vial SQ SCH ×2 (09:50→20:18)
[2021-08-30 10:00] VITALS: BP 162/94
--- NOTE | 2021-08-30 11:55 | NUR ---
PAGER ID: [phone] MESSAGE: Nereida [phone] RE: Goldie Emmanuel room 4010A - patient would like to go home today if possible.
--- NOTE | 2021-08-30 11:56 | NUR ---
Patient expressed the desire to go home today. Paged to let her know.
[2021-08-30] MEDS ORDERED: VANCOMYCIN LEVEL IV ONE (15:00)
--- NOTE | 2021-08-30 15:39 | NUR ---
Tari TABOR to let her know that the patient is considering leaving AMA and she is not on a 1799 hold.
--- NOTE | 2021-08-30 15:39 | NUR ---
PAGER ID: [phone] MESSAGE: Nereida [phone] RE: Goldie Emmanuel room 4010A - patient is considering leaving A and she is not on a 1799 hold. Please advise. Thank you.
[2021-08-30 18:00] VITALS: BP 130/83
--- NOTE | 2021-08-30 18:40 | NUR ---
Patient in room [facility]TH[facility] 4010. I have received report from JERRY CHISHOLM and had the opportunity to ask questions and assume patient care.
--- NOTE | 2021-08-30 18:45 | NUR ---
Problems reprioritized. Patient report given, questions answered & plan of care reviewed with KATHRINE Kelly.
[2021-08-30 22:00] VITALS: BP 123/65
[2021-08-31] MEDS: cefepime 1GM/NS ADD-VANTAGE 100 ML IV SCH ×3 (00:12→16:15)
[2021-08-31] MEDS: vancomycin 1,750 MG in NS 350ml IV soln IV SCH ×2 (05:04→16:17)
--- NOTE | 2021-08-31 06:13 | NUR ---
Problems reprioritized. Patient report given, questions answered & plan of care reviewed with CHRISTIAN RN.
--- NOTE | 2021-08-31 06:47 | NUR ---
Patient in room ORTHO 4010. I have received report from Leticia CHISHOLM and had the opportunity to ask questions and assume patient care.
[2021-08-31 07:12] VITALS: BP 133/73
[2021-08-31] MEDS: pantoprazole 40mg Tablet.DR PO SCH (10:53)
[2021-08-31] MEDS: QUEtiapine 25mg tablet PO SCH ×2 (10:54→19:32)
[2021-08-31] MEDS: heparin, porcine 5000 units/ml vial SQ SCH ×2 (10:56→19:33)
[2021-08-31 11:00] VITALS: BP 141/92
--- NOTE | 2021-08-31 12:18 | NUR ---
PAGER ID: [phone] MESSAGE: Rehan Johnson [phone] re: [id number] Patient wants to go home, no 1799,no mental health eval order, but has a sitter. patient would like mental health eval if possible. thanks
--- NOTE | 2021-08-31 18:25 | NUR ---
Problems reprioritized. Patient report given, questions answered & plan of care reviewed with Leticia CHISHOLM.
--- NOTE | 2021-08-31 18:39 | NUR ---
Patient in room ORTH[facility] 4010. I have received report from CHRISTIAN CHISHOLM and had the opportunity to ask questions and assume patient care.
[2021-08-31 18:40] VITALS: BP 174/66
[2021-08-31 22:00] VITALS: BP 135/77
[2021-09-01] MEDS: cefepime 1GM/NS ADD-VANTAGE 100 ML IV SCH ×3 (01:09→15:41)
[2021-09-01] MEDS: vancomycin 1,750 MG in NS 350ml IV soln IV SCH (03:57)
--- NOTE | 2021-09-01 06:45 | NUR ---
Patient in room ORTHO 4010. I have received report from Leticia CHISHOLM and had the opportunity to ask questions and assume patient care.
[2021-09-01 06:48] VITALS: BP 155/88
--- NOTE | 2021-09-01 06:55 | NUR ---
Problems reprioritized. Patient report given, questions answered & plan of care reviewed with CHRISTIAN RN.
--- NOTE | 2021-09-01 07:31 | NUR ---
Reassessment: Pt continues on EC7/Regular diet per CLIENT TECHNICAL SPECIALIST recs w/ mostly 100% intake of meals meeting needs. [facility]BM 08/31. No change to recommendations at this time, will continue to monitor. Recommendations: 1) Continue regular/EC7 thin liquids diet per CLIENT TECHNICAL SPECIALIST/MD recs; encourage PO 2) magic cup TIDWM for additional kcals/protein; encourage PO 3) Routine bowel care 4) weekly wts Addendum: 09/01/21 at [address] Amended: Links added.
[2021-09-01] MEDS: pantoprazole 40mg Tablet.DR PO SCH (07:42)
[2021-09-01] MEDS: QUEtiapine 25mg tablet PO SCH (07:43)
[2021-09-01] MEDS: heparin, porcine 5000 units/ml vial SQ SCH (07:44)
[2021-09-01 10:00] VITALS: BP 145/85
--- NOTE | 2021-09-01 10:02 | NUR ---
Patient in room ORTH[facility] 4010. I have received report from Rehan CHISHOLM and had the opportunity to ask questions and assume patient care.
--- NOTE | 2021-09-01 10:39 | NUR ---
Problems reprioritized. Patient report given, questions answered & plan of care reviewed with Irene CHISHOLM.
--- NOTE | 2021-09-01 13:06 | NUR ---
Problems reprioritized. Patient report given, questions answered & plan of care reviewed with Reyna CHISHOLM.
[2021-09-01] MEDS ORDERED: VANCOMYCIN LEVEL IV ONE ×2 (15:00→16:30)
--- NOTE | 2021-09-01 15:35 | NUR ---
[facility] in room evaluating patient.
--- NOTE | 2021-09-01 16:57 | NUR ---
Dr Marks wanted to order a vascular ultrasound. I was going to put in the order but patient is refusing ultrasound and wants to go home. She says she will come back if it gets worse. Norvasc 2.5 ordered 1x for current bp of 161 systolic.
[2021-09-01] MEDS ORDERED: amLODIPine 2.5mg tablet PO ONE (17:00)
[2021-09-01] MEDS ORDERED: VANCOMYCIN 1,250mg inj. 1,250 GM in dextrose 5%-water 250 ML IV SCH (17:00)
[2021-09-01] MEDS ORDERED: VANCOmycin 1250MG/NS 250ml Bag 250 ML IV SCH (17:00)
[2021-09-01 17:18] VITALS: BP_SYST 78
--- NOTE | 2021-09-01 18:05 | NUR ---
Patient had decided to stay for vascular ultrasound after boyfriend came to floor and told her she needed to stay and get it. Order put in and vascular paged and after about 20 minutes patient again changed mind and decided to refuse vascular ultrasound once again. She understands the risks of leaving and says she will watch it and come back if its a problem. Patients IV dc'd, pt's belongings taken from room. Pt walked downstairs by staff to meet boyfriend at care. Pt cleared by [facility] to go home and given resources for follow up. BP slightly high and 161 systolic, norvasc x1 given and patient encouraged to follow up with on license of [facility] to establish a pcp. She says her bp is always high and she never does anything about it.
== END 2021-09-01 18:02 | disposition home or self-care (01) | DRG 70 ==
LOC: ER 19:49 → ED HOLD 22:23 → CICU 2S 23:45 → ORTHO 4S 08-28 18:40
PROVIDERS: ADMIT Internal Medicine; ATTEND Internal Medicine
PROC: B3251ZZ Computerized Tomography (CT Scan) of Bilateral Common Carotid Arteries using Low Osmolar Contrast (ICD-10-PCS; principal; 2021-08-25)
PROC: B32G1ZZ Computerized Tomography (CT Scan) of Bilateral Vertebral Arteries using Low Osmolar Contrast (ICD-10-PCS; 2021-08-25)
PROC: B32R1ZZ Computerized Tomography (CT Scan) of Intracranial Arteries using Low Osmolar Contrast (ICD-10-PCS; 2021-08-25)
PROC: B3281ZZ Computerized Tomography (CT Scan) of Bilateral Internal Carotid Arteries using Low Osmolar Contrast (ICD-10-PCS; 2021-08-25)
DX: G93.41 Metabolic encephalopathy (principal); J69.0 Pneumonitis due to inhalation of food and vomit; D64.9 Anemia, unspecified; I10 Essential (primary) hypertension; K74.60 Unspecified cirrhosis of liver; F15.10 Other stimulant abuse, uncomplicated; E87.6 Hypokalemia; Z20.822 Contact with and (suspected) exposure to COVID-19; D63.8 Anemia in other chronic diseases classified elsewhere; F32.A Depression, unspecified; Z79.899 Other long term (current) drug therapy
CPT/HCPCS: 36410; 36415; 36600; 70450; 70496; 70498; 71045; 73060; 73100; 76937; 80053; 80202; 80305; 80320; 80329; 81001; 81025; 82803; 82948; 83605; 83735; 83880; 84100; 84132; 84134; 84478; 84484; 85018; 85025; 85610; 85730; 87040; 87070; 87077; 87081; 87186; 87635; 92508; 92616; 94002; 94003; 94667; 94668; 94760; 96361; 96374; 96375; 99291; A4333; A4615; A6258; C1751; C9113; C9803; G0378; J0330; J0692; J1630; J1644; J2250; J2310; J2704; J3370; J3480; J3490; J7030; J7040; J7050; J7060